=== PATIENT | female | born 1970 | race Two or more races ===

== ENCOUNTER 2024-02-09 10:12 | Inpatient (IN) | payer MEDICAID ==
[~2024-02-09] VITALS: Ht 152.4 cm; Wt 57.2 kg
[~2024-02-09 10:12] MED LIST: CEPH500C PO; CHOL20004 PO; CLOB0.055 EX; DOCU-94 PO; TRAM50TA2 PO
[2024-02-09] MEDS: SODIUM CHLORIDE 0.9% 500 ML IVB ONE (11:33)
[2024-02-09] MEDS: ONDANSETRON HCL 4 MG/2 ML VIAL IV ONE (11:33)
[2024-02-09] MEDS: MORPHINE SULFATE 4 MG/ML SYR/VIAL IV ONE (11:34)
[2024-02-09] MEDS: IOHEXOL 300 MG/ML 100ML BOTTLE IJ ONE (11:39)
[2024-02-09 11:48] LABS: Basophils # (auto) 0.1 10 ^3/uL (0-0.2); Eosinophils # (auto) 0 10 ^3/uL (0-0.8); Eosinophils % (auto) 0.2 % (0.0-7.0); Hematocrit 47.3 % (36.0-46.0); Hemoglobin 15.2 g/dL (12.2-16.2); Lymphocytes % (auto) 22.3 % (10.0-50.0); Mean Corpuscular Hemoglobin 29.6 pg (28.0-32.0); Mean Corpuscular Hgb Conc. 32.1 g/dL (32.0-36.0); Monocytes # (auto) 0.5 10 ^3/uL (0-1.3); Neutrophils # (auto) 9.8 10 ^3/uL (1.6-8.6); Neutrophils % (auto) 72.5 % (37.0-80.0); Red Blood Cells 5.14 10^6/uL (4.0-5.20); Red Cell Distribution Width 13.9 % (11.8-14.3); White Blood Cell 13.6 10^3/uL (4.4-10.8)
[2024-02-09 12:07] LABS: Alanine Aminotransferase 32 U/L (7-40); Albumin 4.4 g/dL (3.2-4.8); Alkaline Phosphatase 146 U/L (46-116); Anion Gap 10 (5-15); Aspartate Aminotransferase 18 U/L (13-40); BUN/Creatinine Ratio 11.1 (10.0-20.0); Bilirubin, Total 1.2 mg/dL (0.2-1.0); Blood Urea Nitrogen 6 mg/dL (9-23); Calcium 9.9 mg/dL (8.7-10.4); Carbon Dioxide 22 mmol/L (20-30); Chloride 108 mmol/L (98-107); Glucose 174 mg/dL (74-106); Lipase 26 U/L (12-53); Potassium 2.9 mmol/L (3.5-5.1); Sodium 140 mmol/L (136-145); Total Protein 7.4 g/dL (5.7-8.2)
[2024-02-09] MEDS ORDERED: DOCUSATE SOD 100 MG CAP PO PRN (12:30)
[2024-02-09] MEDS ORDERED: DEXTROSE (50%) 50ML SYRG IV PRN (13:15)
[2024-02-09] MEDS: POTASSIUM CHL 20 Meq TABLET PO ONE (13:18)
[2024-02-09] MEDS: SODIUM CHLORIDE 0.9% 1,000 ML IV SCH (13:19)
[2024-02-09] MEDS: PIPERACILLIN-TAZOB 3.375GM 100 ML IV ONE (13:19)
[2024-02-09 14:35] LABS: Urine Bacteria None Seen /hpf (None Seen)
[2024-02-09] MEDS: MORPHINE SULFATE INJ 2 MG/ml SYRG IV PRN (14:35)
[2024-02-09] MEDS: POTASSIUM CHL 20MEQ/100ML 100 ML IV SCH (14:35)
[2024-02-09 14:48] LABS: Urine Blood 1+ /uL (Negative); Urine Clarity Clear (Clear); Urine Color Light-Yellow (Yellow); Urine Protein, UAD TRACE (Negative); Urine Urobilinogen Normal (Negative); Urine WBC 1 /hpf (0 - 5)
[2024-02-09 14:49] LABS: Magnesium 1.8 mg/dL (1.6-2.6)
[2024-02-09 14:51] LABS: Phosphorus 3.2 mg/dL (2.4-5.1)
[2024-02-09 14:55] LABS: Urine Specific Gravity > 1.050 (1.001-1.035)
[2024-02-09 15:45] VITALS: PULSE 71; RESP 14; O2SAT 99
[2024-02-09] MEDS: HYDROcodone-ACET 5/325MG TAB PO PRN (17:11)
[2024-02-09] MEDS: ACCU-CHEK COMFORT CURVE STRIP VI SCH (18:09)
[2024-02-09] MEDS: InsuLIN REG 1unit/0.01ml Soln (100units/ml) SC SCH (18:15)
[2024-02-09] MEDS: ONDANSETRON HCL 4 MG/2 ML VIAL IV PRN (20:04)
[2024-02-09] MEDS: PIPERACILLIN-TAZOB 3.375GM 100 ML IV SCH (22:48)
[2024-02-09 23:51] VITALS: BP 133/74; PULSE 78; RESP 16; TEMP 98; O2SAT 98
[2024-02-09 23:54] VITALS: RESP 18
[2024-02-10] VITALS (9 sets, daily range): BP systolic 123–133; BP diastolic 71–78; PULSE 77–107; RESP 16–20; TEMP 97.9–98.8; O2SAT 93–98
[2024-02-10 06:24] LABS: Basophils # (auto) 0 10 ^3/uL (0-0.2); Basophils % (auto) 0.2 % (0.0-2.0); Eosinophils # (auto) 0 10 ^3/uL (0-0.8); Hematocrit 42.5 % (36.0-46.0); Hemoglobin 13.8 g/dL (12.2-16.2); Lymphocytes # (auto) 1.3 10 ^3/uL (0.4-5.4); Lymphocytes % (auto) 7.9 % (10.0-50.0); Mean Corpuscular Hemoglobin 29.7 pg (28.0-32.0); Mean Corpuscular Hgb Conc. 32.5 g/dL (32.0-36.0); Mean Corpuscular Volume 91.3 fL (80.0-100.0); Monocytes # (auto) 1.3 10 ^3/uL (0-1.3); Monocytes % (auto) 7.9 % (0.0-12.0); Neutrophils # (auto) 13.7 10 ^3/uL (1.6-8.6); Red Blood Cells 4.65 10^6/uL (4.0-5.20); Red Cell Distribution Width 13.5 % (11.8-14.3); White Blood Cell 16.3 10^3/uL (4.4-10.8)
[2024-02-10 06:32] LABS: INR 1.07 (0.9-1.15); Partial Thromboplastin Time 29.8 SEC (24.5-34.5); Prothrombin Time 11.3 sec (9.3-11.8)
[2024-02-10 06:36] LABS: Alanine Aminotransferase 23 U/L (7-40); Albumin 3.8 g/dL (3.2-4.8); Alkaline Phosphatase 115 U/L (46-116); Anion Gap 6 (5-15); Aspartate Aminotransferase 13 U/L (13-40); Bilirubin, Total 1.8 mg/dL (0.2-1.0); Calcium 9.2 mg/dL (8.7-10.4); Carbon Dioxide 24 mmol/L (20-30); Chloride 107 mmol/L (98-107); Glucose 99 mg/dL (74-106); Potassium 4.1 mmol/L (3.5-5.1); Sodium 137 mmol/L (136-145); Total Protein 6.3 g/dL (5.7-8.2)
[2024-02-10 06:39] LABS: BUN/Creatinine Ratio 11.1 (10.0-20.0); Blood Urea Nitrogen < 5 mg/dL (9-23)
[2024-02-10] MEDS: HYDROcodone-ACET 10/325MG TAB PO PRN (20:34)
[2024-02-11] VITALS (7 sets, daily range): BP systolic 105–130; BP diastolic 69–78; PULSE 85–98; RESP 17–20; TEMP 98–98.6; O2SAT 90–99
[2024-02-11 06:57] LABS: Basophils # (auto) 0.1 10 ^3/uL (0-0.2); Basophils % (auto) 0.4 % (0.0-2.0); Eosinophils # (auto) 0 10 ^3/uL (0-0.8); Eosinophils % (auto) 0.1 % (0.0-7.0); Hematocrit 41.9 % (36.0-46.0); Hemoglobin 13.6 g/dL (12.2-16.2); Lymphocytes # (auto) 1.5 10 ^3/uL (0.4-5.4); Lymphocytes % (auto) 8.3 % (10.0-50.0); Mean Corpuscular Hemoglobin 29.6 pg (28.0-32.0); Mean Corpuscular Hgb Conc. 32.4 g/dL (32.0-36.0); Mean Corpuscular Volume 91.3 fL (80.0-100.0); Monocytes # (auto) 1.3 10 ^3/uL (0-1.3); Monocytes % (auto) 7.1 % (0.0-12.0); Neutrophils # (auto) 14.9 10 ^3/uL (1.6-8.6); Neutrophils % (auto) 84.1 % (37.0-80.0); Red Blood Cells 4.59 10^6/uL (4.0-5.20); Red Cell Distribution Width 13.8 % (11.8-14.3); White Blood Cell 17.8 10^3/uL (4.4-10.8)
[2024-02-11 07:11] LABS: Alanine Aminotransferase 14 U/L (7-40); Alkaline Phosphatase 107 U/L (46-116); Anion Gap 7 (5-15); BUN/Creatinine Ratio 17.1 (10.0-20.0); Blood Urea Nitrogen 7 mg/dL (9-23); Calcium 9.1 mg/dL (8.7-10.4); Carbon Dioxide 24 mmol/L (20-30); Chloride 105 mmol/L (98-107); Glucose 82 mg/dL (74-106); Potassium 3.5 mmol/L (3.5-5.1); Sodium 136 mmol/L (136-145)
[2024-02-11 07:12] LABS: Albumin 3.6 g/dL (3.2-4.8); Aspartate Aminotransferase 11 U/L (13-40)
[2024-02-11 07:13] LABS: Bilirubin, Total 2.7 mg/dL (0.2-1.0); Total Protein 6.2 g/dL (5.7-8.2)
== END 2024-02-11 21:32 | disposition short-term general hospital (02) | DRG 252 ==
LOC: ER 10:12 → OVERFLOW 13:17 → TELE-WESTW 13:17
PROVIDERS: ADMIT Internal Medicine Geriatric Medicine; ATTEND Internal Medicine Geriatric Medicine
DX: K91.89 Other postprocedural complications and disorders of digestive system (principal); D72.829 Elevated white blood cell count, unspecified; E87.6 Hypokalemia; L30.9 Dermatitis, unspecified; M25.511 Pain in right shoulder; Y83.8 Other surgical procedures as the cause of abnormal reaction of the patient, or of later complication, without mention of misadventure at the time of the procedure; Y82.8 Other medical devices associated with adverse incidents; Z90.49 Acquired absence of other specified parts of digestive tract; K82.8 Other specified diseases of gallbladder
CPT/HCPCS: 36415; 71045; 71275; 74177; 74181; 78226; 80053; 81001; 82962; 83690; 83735; 84100; 84132; 84484; 84702; 85025; 85379; 85610; 85730; 87040; 96361; 96365; 96366; 96372; 96375; G0378; J1815; J2405; J2543; J3480

== ENCOUNTER 2024-04-29 09:53 | Emergency (ER) | payer MEDICAID ==
[~2024-04-29] VITALS: Ht 154.9 cm; Wt 52.2 kg
[2024-04-29 11:01] VITALS: BP 129/77; PULSE 18; RESP 18; O2SAT 98
[2024-04-29] MEDS: ACETAMINOPHEN 500 MG TAB PO ONE (11:25)
[2024-04-29 12:12] VITALS: TEMP 98.2
[2024-04-29] MEDS ORDERED: METH-1181 PO (12:14)
[2024-04-29] MEDS ORDERED: ACET-1080 PO (12:14)
== END 2024-04-29 12:19 | disposition home or self-care (01) ==
LOC: ER 09:53 → EDBD 09:53 → ER 12:17
DX: S39.012A Strain of muscle, fascia and tendon of lower back, initial encounter (principal); Z98.890 Other specified postprocedural states; Z79.899 Other long term (current) drug therapy; V49.88XA Car occupant (driver) (passenger) injured in other specified transport accidents, initial encounter; Y93.I9 Activity, other involving external motion; Y92.89 Other specified places as the place of occurrence of the external cause; Y99.8 Other external cause status
CPT/HCPCS: 72100